=== PATIENT | female | born 1960 | race Caucasian/White ===

== ENCOUNTER → 2024-03-07 11:57 | Outpatient (REF) | payer OTHER, SELFPAY | LOC: HWWDC 11:57 | PROVIDERS: ATTENDING PHYSICIAN Obstetrics & Gynecology; FAMILY PHYSICIAN Family Medicine | DX: Z12.31 Encounter for screening mammogram for malignant neoplasm of breast (principal) | CPT/HCPCS: 77063; 77067 ==

== ENCOUNTER → 2024-05-06 13:45 | Outpatient (REF) | payer OTHER, SELFPAY | LOC: HWRAD 13:45 | PROVIDERS: ATTENDING PHYSICIAN Specialist; FAMILY PHYSICIAN Family Medicine | DX: N20.0 Calculus of kidney (principal) | CPT/HCPCS: 74018 ==

== ENCOUNTER → 2024-10-25 07:14 | Outpatient (REF) | payer OTHER, SELFPAY | LOC: HWRAD 07:14 | PROVIDERS: ATTENDING PHYSICIAN Specialist; FAMILY PHYSICIAN Family Medicine | DX: R31.0 Gross hematuria (principal) | CPT/HCPCS: 74018 ==

== ENCOUNTER → 2024-11-08 06:53 | Outpatient (REF) | payer OTHER, SELFPAY | LOC: RAD 06:53 | PROVIDERS: ATTENDING PHYSICIAN Specialist; FAMILY PHYSICIAN Family Medicine | DX: R31.0 Gross hematuria (principal) | CPT/HCPCS: 74178 ==

== ENCOUNTER 2024-11-22 06:15 | Day surgery (SDC) | payer OTHER, SELFPAY ==
[2024-11-18 13:59] VITALS: BMI 24.8
[2024-11-18 14:29] LABS: Hematocrit 38.3 % (37.0-47.0); Hemoglobin 12.9 g/dL (12.0-16.0); Mean Corp Hgb Conc. 33.7 g/dL (33.0-37.0); Mean Corpuscular Hgb 29.7 pg (27.0-31.0); Mean Platelet Volume 10.2 fL (7.4-10.4); Platelet Count 333 10^3/uL (130-400); Red Blood Cell Count 4.35 10^6/uL (4.20-5.40); Red Cell Dist. Width 12.5 % (11.5-14.5)
[2024-11-22] VITALS (8 sets, daily range): BP systolic 109–127; BP diastolic 73–82; BMI 24.8
[2024-11-22] MEDS: NORMOSOL-R/PLASMALYTE-A 1000 IV (07:10)
[2024-11-22] MEDS: Pyridium 200 MG PO (09:25)
[2024-11-22] MEDS: DETROL LA 4 MG PO (09:25)
[2024-11-25 22:57] LABS: Stone Analysis Mass 51 mg
== END 2024-11-22 10:46 | disposition home or self-care (01) ==
LOC: SDS 06:15
PROVIDERS: ATTENDING PHYSICIAN Specialist; FAMILY PHYSICIAN Family Medicine
DX: N20.0 Calculus of kidney (principal); R31.0 Gross hematuria
CPT/HCPCS: 52356; 74420; 76000; 82365; 85027; 93005; C1758; C1894; C2617